=== PATIENT | male | born 1995 | race African-American/Black ===

== ENCOUNTER 2020-10-18 12:42 | Emergency (ER) | payer SELFPAY ==
[~2020-10-18] VITALS: Ht 195.6 cm; Wt 110.0 kg
[2020-10-18 13:34] LABS: HEMATOCRIT 42.4 % (39.0-50.0); HEMOGLOBIN 13.3 g/dl (14.0-18.0); IMMATURE GRANULOCYTES 0.2 % (0.0-5.0); MEAN CELL VOLUME 89.8 fL CALC (80.0-100.0); MEAN CORPUSCULAR HGB 28.2 pG CALC (26.0-32.0); MEAN CORPUSCULAR HGB CONC 31.4 g/dL CAL (32.0-36.0); NEUT# 2.21 thou/uL (1.82-7.42); RED BLOOD COUNT 4.72 mill/uL (4.70-6.10); RED CELL DISTRI WIDTH 12.1 % (11.5-15.5)
[2020-10-18 13:56] LABS: ANION GAP 13 (6-22 (CALC)); BUN 9 mg/dL (9-20); BUN/CREATININE RATIO 10 (12-20 (CALC)); CARBON DIOXIDE 29 mmol/l (22-30); CHLORIDE 102 mmol/l (95-108); CREATININE 0.9 mg/dL (0.7-1.3); GFR > 60 ML/MIN (>=60 (CALC)); GFR FOR AFR.AMER. > 60 ML/MIN (>=60 (CALC)); POTASSIUM 4.1 mmol/l (3.5-5.1); SODIUM 140 mmol/l (137-146)
[2020-10-18 14:04] VITALS: BP 150/90
[2020-10-18] MEDS ORDERED: FLOXIN OTIC0.3 % OS (14:14)
[2020-10-18] MEDS ORDERED: OMNI-PAC300 MG PO (14:14)
[2020-10-18] MEDS ORDERED: CLINDAMYCIN HY300 MG PO (14:14)
== END 2020-10-18 14:21 | disposition home or self-care (01) | DRG 125 ==
LOC: ED 12:42
PROVIDERS: Family Medicine
DX: H10.9 Unspecified conjunctivitis (principal); L03.213 Periorbital cellulitis; F17.210 Nicotine dependence, cigarettes, uncomplicated
CPT/HCPCS: Q9967